=== PATIENT | male | born 1970 | race Two or more races ===

== ENCOUNTER 2020-08-14 00:02 | Emergency (ER) | payer SELFPAY ==
[~2020-08-14] VITALS: Ht 167.6 cm; Wt 70.0 kg
[2020-08-14] MEDS ORDERED: SODIUM CHLORIDE 0.9% 1,000 ML IV ONE (01:00)
[2020-08-14] MEDS ORDERED: ONDANSETRON HCL 4MG/2ML INJ IV ONE (01:00)
[2020-08-14 03:43] VITALS: BP 138/83
== END 2020-08-14 03:55 | disposition home or self-care (01) ==
LOC: ER 00:02 → EDBD 00:02 → ER 03:55
DX: F10.129 Alcohol abuse with intoxication, unspecified (principal); R41.82 Altered mental status, unspecified; Y90.9 Presence of alcohol in blood, level not specified
CPT/HCPCS: 70450; 71045; 96361; 96374; 99284; J2405; J7030